=== PATIENT | female | born 1995 ===

== ENCOUNTER 2018-11-06 08:16 | Emergency (ER) | payer SELFPAY ==
--- NOTE | 2018-11-06 08:56 | ER Document Report ---
ED General - General Chief Complaint: Pelvic Pain Stated Complaint: PELVIC PAIN Time Seen by Provider: 11/06/18 08:54 Primary Care Provider: GARRY MEYERS MD [ACTIVE STAFF] - Follow up in 3-5 days SUJIT CARBAJAL MD [ACTIVE STAFF] - Follow up in 3-5 days Mode of Arrival: Ambulatory Information source: Patient TRAVEL OUTSIDE OF THE [place] IN LAST 30 DAYS: No - HPI Onset: Just prior to arrival Notes: 22-year-old female presents the ED with complaints of having right lower quadrant abdominal pain that moved to the suprapubic area in the last 5 days. Last menstrual period was October 12, is due for repeat in the next 5 days, last bowel movement was this morning. Pain is 8 out of 10, throbbing and sharp, worse with walking, denies any vaginal bleeding or vaginal pain. Reports she took a home test that was negative has an appointment to see her [employer] SALES REPRESENTATIVE in 4 days, pain became worse so she went to be seen earlier. Denies any nausea vomiting or diarrhea, denies any fevers chills, denies any bowel or bladder dysfunction no saddle anesthesia. Numbness or tingling down the legs, denies weakness. No trauma. Is not taking any medications by mouth. Does not have a history of ovarian, uterine fallopian cysts.Denies any cp or sob - Related Data Allergies/Adverse Reactions: No Known Allergies Allergy (Unverified 11/06/18 08:17) Past Medical History - General Information source: Patient - Social History Smoking Status: Never Smoker Family History: Reviewed & Not Pertinent Review of Systems - Review of Systems Constitutional: No symptoms reported EENT: No symptoms reported Cardiovascular: No symptoms reported Respiratory: No symptoms reported Gastrointestinal: No symptoms reported Genitourinary: See HPI Female Genitourinary: No symptoms reported Musculoskeletal: No symptoms reported Skin: No symptoms reported Hematologic/Lymphatic: No symptoms reported Neurological/Psychological: No symptoms reported Physical Exam - Vital signs Vitals: Temp Pulse Resp BP Pulse Ox 98.7 F 88 15 124/65 100 11/06/18 08:20 11/06/18 08:20 11/06/18 08:20 11/06/18 08:20 11/06/18 08:20 - Notes Notes: PHYSICAL EXAMINATION: GENERAL: Well-appearing, well-nourished and in no acute distress. HEAD: Atraumatic, normocephalic. EYES: Pupils equal round and reactive to light, extraocular movements intact, conjunctiva are normal. ENT: Nares patent, oropharynx clear without exudates. Moist mucous membranes. NECK: Normal range of motion, supple without lymphadenopathy LUNGS: Breath sounds clear to auscultation bilaterally and equal. No wheezes rales or rhonchi. HEART: Regular rate and rhythm without murmurs ABDOMEN: Soft, nondistended abdomen tenderness to right lower quadrant on palpation with rebound, negative McBurney sign. No guarding, no rebound. No masses appreciated. Tenderness on palpation bilaterally Female : External genitalia without erythema, exudate or discharge. Vaginal vault is without discharge. Cervix is of normal color without lesion. There is no bleeding noted. Uterus is noted to be of normal size and nontender. No cer vical motion tenderness is seen. No masses are palpated. Musculoskeletal: Normal range of motion, no pitting or edema. No cyanosis. NEUROLOGICAL: Cranial nerves grossly intact. Normal speech, normal gait. Normal sensory, motor exams PSYCH: Normal mood, normal affect. SKIN: Warm, Dry, normal turgor, no rashes or lesions noted. Course - Re-evaluation Re-evalutation: 11/06/18 11:33 22 female afebrile vitals stable no no distress for evaluation of right lower quadrant abdominal pain with suprapubic abdominal pain. CMP and CBC unremarkable, urinalysis does have some leuks, will culture urine. Transvaginal ultrasound shows a complex cyst in the right ovary, states possibly hemorrhagic recommends a follow-up ultrasound in 6-12 weeks, appendix unable to visualize, will order CT of abdomen and pelvis with IV contrast. Wet mount negative. GC pending. ct abdomen and pelvis with IV contrast was unremarkable, appendix visualized and was normal. After performing a Medical Screening Examination, I estimate there is LOW risk for ACUTE APPENDICITIS, BOWEL OBSTRUCTION, ACUTE CHOLECYSTITIS, PERFORATED DIVERTICULITIS, INCARCERATED HERNIA, PANCREATITIS, PELVIC INFLAMMATORY DISEASE, PERFORATED ULCER, ECTOPIC , or TUBO-OVARIAN ABSCESS, thus I consider the discharge disposition reasonable. Also, there is no evidence or peritonitis, sepsis, or toxicity. I have reevaluated this patient multiple times and no significant life threatening changes are noted. The patient and I have discussed the diagnosis and risks, and we agree with discharging home with close follow-up with the understanding that symptoms and presentations can change. We also discussed returning to the Emergency Department immediately if new or worsening symptoms occur. We have discussed the symptoms which are most concerning (e.g., bloody stool, fever, changing or worsening pain, vomiting) that necessitate immediate return. Patient did test positive for chlamydia, patient had already left due to duration of wait for GC testing, multiple attempts by this provider to contact patient to advise her to return for 1 g of azithromycin orally, however phone always listed as "busy" unable to leave voice message. Patient will need to return to the ED for medication administration. - Vital Signs Vital signs: Temp Pulse Resp BP Pulse Ox 98.6 F 86 14 126/67 H 100 11/06/18 13:36 11/06/18 13:36 11/06/18 13:36 11/06/18 13:36 11/06/18 13:36 - Laboratory Result Diagrams: 11/06/18 10:18 11/06/18 10:18 Laboratory results interpreted by me: 11/06/18 11/06/18 11/06/18 09:30 10:18 11:15 Chloride 108 H Ur Leukocyte Esterase SMALL H Chlamydia DNA (PCR) DETECTED H - EKG Interpretation by Me EKG shows normal: Sinus rhythm Rate: Normal Discharge - Discharge Clinical Impression: Ovarian cyst, Bacteriuria, Chlamydia Condition: Good Disposition: HOME, SELF-CARE Instructions: Ovarian Cyst ([facility]), Urinary Tract Infection ([facility]) Additional Instructions: Today been diagnosed with an ovarian cyst. These typically occur in the middle of your typical menstrual cycle. The pain should last for no more than 3-4 days. For your pain: Take ibuprofen 600 mg and acetaminophen 1000 mg every 6 hours together as needed for pain. If this does not control your pain you may take 15 mg of oral morphine every 4 hours as needed. Please be very careful about using the oral morphine and only use this for severe pain. Please follow- up with your [employer] SALES REPRESENTATIVE regarding today's visit. If you have multiple recurrent cyst that continue to cause you pain like this, you may require hormone therapy such as oral control pills to prevent recurrence of the same. Return if you develop fever, nausea, vomiting, worsening abdominal pain, pass out, or have any other symptoms that are worrisome to you. You tested positive for chlamydia, you will need 1 g of azithromycin, multiple attempts to contact you to let you know that you did test positive. We will continue to attempt to reach you, department loss be contacting you for testing positive for treatment. you need to use protection every time you have sex. Failure to do so can result in transmission of infections or unintended . You have been treated for an sexually transmitted infection (STI) today. All of your partners should be tested and treated as they are also likely to be infected. Please return if you develop abdominal pain, fever, persistent vomiting, or any other symptoms that are concerning to you. Return immediately for any new or worsening symptoms. Follow up with primary care provider, call tomorrow to make followup appointment. Prescriptions: Nitrofurantoin Macrocrystal [Macrodantin] 100 mg PO BID #14 capsule Forms: Return to Work Referrals: GARRY MEYERS MD [ACTIVE STAFF] - Follow up in 3-5 days SUJIT CARBAJAL MD [ACTIVE STAFF] - Follow up in 3-5 days
--- NOTE | 2018-11-06 10:17 | RADIOLOGY REPORT (SQ) ---
EXAM DESCRIPTION: U/S NON OB PEL TV W/DOPPLER COMPLETED DATE/TIME: 11/06/2018 10:03 am REASON FOR STUDY: pelvic pain COMPARISON: None. TECHNIQUE: Dynamic and static grayscale images acquired of the pelvis via transvaginal approach and recorded on PACS. Additional selected color Doppler and spectral images recorded. LIMITATIONS: None. FINDINGS: UTERUS: Contour normal. No mass. ENDOMETRIAL STRIPE: No focal or generalized thickening. No masses. CERVIX: Small nabothian cysts. RIGHT OVARY AND DOPPLER: Normal size. Complex cystic area measuring 1.5 x 2.4 x 3.5 cm. Normal mike rial vascular flow without evidence for torsion. LEFT OVARY AND DOPPLER: Normal size. No worrisome masses. Normal arterial vascular flow without evide nce for torsion. FREE FLUID: None noted. OTHER: No other significant finding. MEASUREMENTS: UTERUS: 4.6 x 4.7 x 7.8 cm. ENDOMETRIAL STRIPE: 1.2 cm. RIGHT OVARY: 2.2 x 4.0 x 4.3 cm. LEFT OVARY: 2.0 x 2.5 x 3.0 cm. IMPRESSION: COMPLEX CYST IN THE RIGHT OVARY, POSSIBLY HEMORRHAGIC. NO OTHER SIGNIFICANT FINDINGS. RECOMMEND FOLLOW-UP ULTRASOUND IN 6-12 WEEKS. COMMENT: Followup of asymptomatic indeterminate ovarian cysts detected by ultrasound in PREMENOPAUS [place] patients Cyst with findings suggestive of, but not classic for, hemorrhagic cyst, endometrioma or dermoid: *6-12 week followup US; if not a resolving hemorrhagic cyst, continued US or MRI followup; if endomet rioma or dermoid still not confirmed, consider surgical consultation Single thin septation or focal wall calcification: *Same as for benign cyst, based on size Multiple septations: *Consider surgical consultation Nodule in a cyst: *No blood flow in nodule: MRI or surgical consultation *Blood flow in nodule: surgical consultation Note: If cyst is clinically symptomatic or otherwise concerning, other followup may be warranted. Based on recommendations of the Society for Radiologists in Ultrasound Consensus Conference Statement 2010 on management of asymptomatic ovarian and other adnexal cysts imaged at ultrasound. TECHNICAL DOCUMENTATION: JOB ID: [id number] [employer]- All Rights Reserved Rev Reading location - IP/workstation name: [email or web address]
[2018-11-06 10:29] LABS: ABSOLUTE BASOPHILS # (AUTO) 0.1 10^3/uL (0.0-0.2); ABSOLUTE EOSINOPHILS # (AUTO) 0.2 10^3/uL (0.0-0.6); ABSOLUTE LYMPHOCYTES (AUTO) 2.2 10^3/uL (0.5-4.7); ABSOLUTE MONOCYTES (AUTO) 0.6 10^3/uL (0.1-1.4); ABSOLUTE NEUT (AUTO) 6.1 10^3/uL (1.7-8.2); BASOPHILS % (AUTO) 0.7 % (0-2); EOSINOPHILS % (AUTO) 2.3 % (0-6); HEMOGLOBIN 12.8 g/dL (12.0-15.5); LYMPHOCYTES % (AUTO) 23.8 % (13-45); MEAN CORPUSCULAR HEMOGLOBIN 28.6 pg (27.0-33.4); MEAN CORPUSCULAR HGB CONC 33.6 g/dL (32.0-36.0); MEAN CORPUSCULAR VOLUME 85 fl (80-97); MONOCYTES % (AUTO) 6.4 % (3-13); PLATELET COUNT 300 10^3/uL (150-450); RED BLOOD COUNT 4.46 10^6/uL (3.72-5.28); RED CELL DISTRIBUTION WIDTH 12.9 % (11.5-14.0); SEGMENTED NEUTROPHILS % (AUTO) 66.8 % (42-78); TOTAL CELLS COUNTED % (AUTO) 100 %; WHITE BLOOD COUNT 9.2 10^3/uL (4.0-10.5)
[2018-11-06 10:44] LABS: APPEARANCE,URINE SLIGHTLY-CLOUDY; BILIRUBIN,URINE NEGATIVE (NEGATIVE); COLOR,URINE YELLOW; GLUCOSE, URINE NEGATIVE (NEGATIVE); KETONES,URINE NEGATIVE (NEGATIVE); LEUKOCYTE ESTERASE,URINE SMALL (NEGATIVE); NITRITE,URINE NEGATIVE (NEGATIVE); PROTEIN,URINE NEGATIVE (NEGATIVE); URINE SPECIFIC GRAVITY 1.023; UROBILINOGEN,URINE NEGATIVE mg/dL (<2.0)
--- NOTE | 2018-11-06 11:06 | RADIOLOGY REPORT (SQ) ---
EXAM DESCRIPTION: U/S ABDOMEN LIMITED W/O DOP COMPLETED DATE/TIME: 11/06/2018 10:05 am REASON FOR STUDY: RLQ pain, look at appendix please COMPARISON: None. TECHNIQUE: Dynamic and static grayscale images acquired of the abdomen and recorded on PACS. Additio nal selected color Doppler and spectral images recorded. LIMITATIONS: None. FINDINGS: Sonographic imaging is performed in right lower quadrant in the area of concern. The appe ndix is not identified. However, normal compressible, peristalsing bowel is present. IMPRESSION: The appendix is not identified, but there is normal appearing bowel in the area of desmond rn. TECHNICAL DOCUMENTATION: JOB ID: [id number] [employer]- All Rights Reserved Reading location - IP/workstation name: [email or web address]
[2018-11-06 11:07] LABS: ALANINE AMINOTRANSFERASE 16 U/L (9-52); ALBUMIN 4.8 g/dL (3.5-5.0); ALKALINE PHOSPHATASE 67 U/L (38-126); ANION GAP 9 (5-19); ASPARTATE AMINO TRANSFERASE 16 U/L (14-36); BILIRUBIN,DIRECT 0.2 mg/dL (0.0-0.4); BILIRUBIN,TOTAL 0.7 mg/dL (0.2-1.3); BLOOD UREA NITROGEN 14 mg/dL (7-20); CARBON DIOXIDE 24 mmol/L (22-30); CHLORIDE 108 mmol/L (98-107); GLUCOSE 92 mg/dL (75-110); POTASSIUM 4.4 mmol/L (3.6-5.0)
[2018-11-06 11:49] LABS: RBCS (WET MOUNT) RARE RBCS SEEN; T.VAGINALIS (WET MOUNT) NO TRICHOMONAS SEEN; WBCS (WET MOUNT) 1+ WBCS SEEN; YEAST (WET MOUNT) NO YEAST SEEN
--- NOTE | 2018-11-06 12:53 | RADIOLOGY REPORT (SQ) ---
EXAM DESCRIPTION: CT ABD/PELVIS WITH IV ONLY COMPLETED DATE/TIME: 11/06/2018 12:35 pm REASON FOR STUDY: RLQ abd pain COMPARISON: None. TECHNIQUE: CT scan of the abdomen and pelvis performed using helical scanning technique with dynamic intravenous contrast injection. No oral contrast. Images reviewed with lung, soft tissue, and bone windows. Reconstructed coronal and sagittal MPR images reviewed. Delayed images were not acquired. Al l images stored on PACS. All CT scanners at this facility use dose modulation, iterative reconstruction, and/or weight based d osing when appropriate to reduce radiation dose to as low as reasonably achievable (ALARA). [facility]: Dose Right [facility]: CareDose [facility]: Dose Right [facility]: Teradose 4D [facility]: Get10 CONTRAST TYPE AND DOSE: contrast/concentration: Isovue 350.00 mg/ml; Total Contrast Delivered: 75.0 ml; Total Saline Delivered: 67.0 ml RENAL FUNCTION: GFR > 60. RADIATION DOSE: CT Rad equipment meets quality standard of care and radiation dose reduction techniq ues were employed. CTDIvol: 7.2 - 10.1 mGy. DLP: 818 mGy-cm.. LIMITATIONS: None. FINDINGS: LOWER CHEST: No significant findings. No nodules or infiltrates. LIVER: Normal size. No masses. No dilated ducts. SPLEEN: Normal size. No focal lesions. PANCREAS: No masses. No significant calcifications. No adjacent inflammation or peripancreatic fluid collections. Pancreatic duct not dilated. GALLBLADDER: No identified stones by CT criteria. No inflammatory changes to suggest cholecystitis. ADRENAL GLANDS: No significant masses or asymmetry. RIGHT KIDNEY AND URETER: No solid masses. No significant calcifications. No hydronephrosis or hyd roureter. LEFT KIDNEY AND URETER: No solid masses. No significant calcifications. No hydronephrosis or hydr oureter. AORTA AND VESSELS: No aneurysm. No dissection. Renal arteries, SMA, celiac without stenosis. RETROPERITONEUM: No retroperitoneal adenopathy, hemorrhage or masses. BOWEL AND PERITONEAL CAVITY: No masses or inflammatory changes. No free fluid or peritoneal masses. APPENDIX: Normal. PELVIS: No mass. No free fluid. Normal bladder. ABDOMINAL WALL: Diastases of the rectus musculature. BONES: No significant or acute findings. OTHER: No other significant finding. IMPRESSION: No acute findings. Normal appendix. TECHNICAL DOCUMENTATION: JOB ID: [id number] Quality ID # [id number]: Final reports with documentation of one or more dose reduction techniques (e.g., Au tomated exposure control, adjustment of the mA and/or kV according to patient size, use of iterative reconstruction technique) 2010 [employer]- All Rights Reserved Reading location - IP/workstation name: [email or web address], [email or web address]-
[2018-11-06 13:24] LABS: CHLAM PCR DETECTED (NOT DETECT); GON PCR NOT DETECTED (NOT DETECT)
[2018-11-06 13:37] VITALS: BP 126/67
== END 2018-11-06 13:39 | disposition home or self-care (01) ==
LOC: ER 08:16
DX: N83.201 Unspecified ovarian cyst, right side (principal); R82.71 Bacteriuria; A74.9 Chlamydial infection, unspecified; R10.2 Pelvic and perineal pain; R10.31 Right lower quadrant pain
CPT/HCPCS: 36415; 74177; 76705; 76830; 80053; 81001; 81025; 85025; 87086; 87088; 87210; 87491; 87591; 93976; 99284